=== PATIENT | female | born 1975 | race Asian ===

== ENCOUNTER 2024-01-04 09:25 | Day surgery (SDC) | payer OTHER ==
[~2024-01-04] VITALS: Ht 160 cm; Wt 53.5 kg
[2024-01-04 11:11] VITALS: O2SAT 100
[2024-01-04 11:51] LABS: HCG,QUAL RESULT NEGATIVE (NEGATIVE)
[2024-01-04] MEDS ORDERED: BENZOCAINE 20% 0.5mL UD SPRAY MM ONE (12:10)
[2024-01-04] MEDS ORDERED: fentaNYL CITRATE/PF 100 MCG/2 ML AMP ONE (13:50)
[2024-01-04] MEDS ORDERED: MIDAZOLAM HCL 5 MG/5 ML VIAL ONE (13:50)
[2024-01-04 19:08] VITALS: BP_SYST 108; PULSE 53; RESP 12
== END 2024-01-04 15:10 | disposition home or self-care (01) ==
LOC: SGI 09:25 → SMU 09:29 → SGI 15:10
PROVIDERS: ATTEND Internal Medicine
DX: Z12.11 Encounter for screening for malignant neoplasm of colon (principal); R10.9 Unspecified abdominal pain; K64.8 Other hemorrhoids; K29.50 Unspecified chronic gastritis without bleeding; B96.81 Helicobacter pylori [H. pylori] as the cause of diseases classified elsewhere; Z80.0 Family history of malignant neoplasm of digestive organs
CPT/HCPCS: 45378; 43239; 99152; 84703; 88305; 88312; 88313; G0378; J2250; J3010